=== PATIENT | male | born 1950 | race Caucasian/White ===

== ENCOUNTER 2017-04-25 17:34 | Emergency (ER) | payer SELFPAY ==
[~2017-04-25] VITALS: Ht 193 cm; Wt 120.2 kg
[~2017-04-25 17:34] MED LIST: DIAZ-60 PO; [UNRECOGNIZED DRUG - CODE] PO
--- NOTE | 2017-04-25 17:34 | NUR ---
BROUGHT IN BY SOTERO FITCH, PLACED IN HALLWAY AND TRIAGED. REPORT GIVEN TO MERON
[2017-04-25 17:35] VITALS: BP_SYST 140
--- NOTE | 2017-04-25 17:40 | NUR ---
YUMIKO Wong at bedside examining patient.
--- NOTE | 2017-04-25 17:44 | NUR ---
Pt ALEN Hoffman. Per , pt is being arrested, but has not taken his Parkinson's medication. Will need medical evaluation before booking. Pt sitting comfortably in chair, speaking in full sentences, breathing even and unlabored. No other injuries/complaints per pt/noted.
[2017-04-25] MEDS ORDERED: CARBIDOPA/LEVODOPA 25/100 MG TABLET PO ONE (17:45)
[2017-04-25 18:33] VITALS: BP_SYST 135
--- NOTE | 2017-04-25 18:33 | NUR ---
Patient given written and verbal discharge instructions and verbalizes understanding. ER MD discussed with patient the results and treatment provided. Patient in stable condition. ID arm band removed. Rx of carbidopa/levodopa given. Patient educated on pain management and to follow up with PMD. Pain Scale 0. Opportunity for questions provided and answered.
== END 2017-04-25 18:33 ==
LOC: SED 17:34
DX: Z02.89 Encounter for other administrative examinations (principal); G20 Parkinson's disease
CPT/HCPCS: 99283

== ENCOUNTER 2020-01-18 14:16 | Emergency (ER) | payer MEDICARE ==
[~2020-01-18] VITALS: Ht 188 cm; Wt 136.1 kg
[2020-01-18 14:16] VITALS: BP_SYST 157
[~2020-01-18 14:16] MED LIST changes: -DIAZ-60 PO; +DIAZ5TAB PO
--- NOTE | 2020-01-18 14:16 | NUR ---
PLACED IN BED 2, TRIAGED AT BEDSIDE, 12 LEAD EKG IN PROGRESS
--- NOTE | 2020-01-18 14:20 | NUR ---
EKG performed at BS by RN. Physician given copy of EKG for review.
--- NOTE | 2020-01-18 14:20 | NUR ---
Pt walked in to ER with c/o chest tightness and anxiety since this morning. Reports recent h/o anxiety attacks and taking prescribed medications but they aren't working. V/S stable, pt is afebrile. Currently resting in bed, will continue to monitor
--- NOTE | 2020-01-18 14:25 | NUR ---
YUMIKO Wong at bedside examining patient.
[2020-01-18] MEDS ORDERED: ASPIRIN 325 MG TABLET (ECOTRIN) PO ONE (14:45)
--- NOTE | 2020-01-18 14:45 | NUR ---
# 18 gauge angiocath placed to right wrist. Use of asceptic technique. Opsite placed over site. Blood return noted. Blood for lab drawn from site. Flushed with 10 cc of normal saline. No evidence of infiltration noted. Patient tolerated well.
--- NOTE | 2020-01-18 14:50 | NUR ---
Radiology at bedside for CXR, pt refusing at this time. Dr. Wong aware
[2020-01-18] MEDS ORDERED: ALPRAZolam 0.25 MG TABLET PO ONE (15:00)
[2020-01-18 15:23] LABS: BASOPHILS # (AUTO) 0.1 K/uL (0.0-0.2); BASOPHILS % (AUTO) 0.7 % (0.0-2.0); EOSINOPHILS # (AUTO) 0.5 K/uL (0.0-0.4); EOSINOPHILS % (AUTO) 6.5 % (0.0-4.0); HEMATOCRIT 38.5 % (36-54); HEMOGLOBIN 12.6 g/dL (14.0-18.0); LYMPHOCYTES # (AUTO) 3.1 K/uL (1.0-5.5); LYMPHOCYTES % (AUTO) 36.4 % (20.5-51.5); MEAN CORPUSCULAR HEMOGLOBIN 31 pg (27-31); MEAN CORPUSCULAR HGB CONC 33 % (32-36); MEAN CORPUSCULAR VOLUME 95 fL (79.0-98.0); MONOCYTES # (AUTO) 0.7 K/uL (0.0-1.0); MONOCYTES % (AUTO) 8.6 % (1.7-9.3); NEUTROPHILS % (AUTO) 47.8 % (40.0-70.0); PLATELET COUNT (AUTO) 201 K/uL (130-430); RED BLOOD CELL COUNT(AUTO) 4.07 MIL/uL (4.2-6.2); RED CELL DISTRIBUTION WIDTH 12.7 % (9.0-15.0); WHITE BLOOD COUNT (AUTO) 8.4 K/uL (4.8-10.8)
[2020-01-18 15:27] LABS: ANION GAP 3 (5-15); CALCIUM 8.7 mg/dL (8.4-11.0); CHLORIDE 105 mmol/L (98-107); CREATININE 1.07 mg/dL (0.55-1.30); GLUCOSE 96 mg/dL (70-99); SODIUM SERUM 142 mmol/L (136-145); UREA NITROGEN, BLOOD 21 mg/dL (8-21)
[2020-01-18 15:40] LABS: ALANINE AMINOTRANSFERASE 15 U/L (12-78); ALBUMIN 3.5 g/dL (3.4-4.8); ASPARTATE AMINOTRANSFERASE 14 U/L (10-37); TOTAL BILIRUBIN 1.3 mg/dL (0.0-1.0)
[2020-01-18 15:42] LABS: GFR AFRICAN AMERICAN 89 mL/min (>90)
[2020-01-18 16:06] VITALS: BP_SYST 135
--- NOTE | 2020-01-18 16:07 | NUR ---
Patient given written and verbal discharge instructions and verbalizes understanding. ER MD discussed with patient the results and treatment provided. Patient in stable condition. ID arm band removed. IV catheter removed intact and dressing applied, no active bleeding. Rx of NONE given. Patient educated on pain management and to follow up with PMD. Pain Scale 0/10 Opportunity for questions provided and answered. Medication side effect fact sheet provided.
== END 2020-01-18 16:06 | disposition home or self-care (01) ==
LOC: SED 14:16
DX: F41.0 Panic disorder [episodic paroxysmal anxiety] (principal); R07.89 Other chest pain; G20 Parkinson's disease
CPT/HCPCS: 36415; 80053; 83880; 84484; 85025; 93005; 99284

== ENCOUNTER 2020-07-23 10:43 | Emergency (ER) | payer MEDICARE ==
[~2020-07-23] VITALS: Ht 185.4 cm; Wt 122.5 kg
[2020-07-23 10:53] VITALS: BP_SYST 162
[2020-07-23] MEDS ORDERED: ONDANSETRON HCL 4 MG/2 ML VIAL IVP ONE ×2 (11:00→12:30)
[2020-07-23] MEDS ORDERED: MECLIZINE HCL 25 MG TABLET (ANITVERT) PO ONE (11:00)
[2020-07-23 11:09] LABS: BASOPHILS # (AUTO) 0.1 K/uL (0.0-0.2); BASOPHILS % (AUTO) 1.1 % (0.0-2.0); EOSINOPHILS # (AUTO) 1.1 K/uL (0.0-0.4); EOSINOPHILS % (AUTO) 17.8 % (0.0-4.0); HEMATOCRIT 41.3 % (36-54); HEMOGLOBIN 13.5 g/dL (14.0-18.0); LYMPHOCYTES # (AUTO) 2.5 K/uL (1.0-5.5); MEAN CORPUSCULAR HEMOGLOBIN 31 pg (27-31); MEAN CORPUSCULAR HGB CONC 33 % (32-36); MEAN CORPUSCULAR VOLUME 96 fL (79.0-98.0); MONOCYTES # (AUTO) 0.6 K/uL (0.0-1.0); MONOCYTES % (AUTO) 8.6 % (1.7-9.3); NEUTROPHILS # (AUTO) 2.2 K/uL (1.8-7.7); NEUTROPHILS % (AUTO) 34.5 % (40.0-70.0); PLATELET COUNT (AUTO) 218 K/uL (130-430); RED BLOOD CELL COUNT(AUTO) 4.31 MIL/uL (4.2-6.2); RED CELL DISTRIBUTION WIDTH 13.6 % (9.0-15.0); WHITE BLOOD COUNT (AUTO) 6.5 K/uL (4.8-10.8)
[2020-07-23 11:27] LABS: ANION GAP 6 (5-15); CHLORIDE 104 mmol/L (98-107); CREATININE 0.92 mg/dL (0.55-1.30); GLUCOSE 101 mg/dL (70-99); POTASSIUM 4.9 mmol/L (3.5-5.1); SODIUM SERUM 142 mmol/L (136-145); UREA NITROGEN, BLOOD 15 mg/dL (8-21)
[2020-07-23 11:28] LABS: GFR AFRICAN AMERICAN 106 mL/min (>90)
[2020-07-23 11:32] LABS: ALANINE AMINOTRANSFERASE 16 U/L (12-78); ALBUMIN 3.6 g/dL (3.4-4.8); ASPARTATE AMINOTRANSFERASE 20 U/L (10-37); TOTAL BILIRUBIN 0.5 mg/dL (0.0-1.0)
[2020-07-23 11:33] LABS: ALCOHOL, BLOOD < 3 mg/dL (<10)
[2020-07-23 11:34] LABS: INR 0.9 (0.80-1.20); PROTHROMBIN TIME 9.6 SECS (9.5-12.5)
[2020-07-23] MEDS ORDERED: MORPHINE 2 MG/ML INJ. SYRINGE IVP ONE (12:30)
[2020-07-23 12:32] LABS: BILIRUBIN,URINE NEGATIVE (NEGATIVE); BLOOD, URINE NEGATIVE (NEGATIVE); CLARITY/URINE CLEAR (CLEAR); COLOR,URINE YELLOW (YELLOW); GLUCOSE,URINE NEGATIVE (NEGATIVE); KETONES,URINE NEGATIVE (NEGATIVE); LEUKOCYTE ESTERASE ,URINE NEGATIVE (NEGATIVE); NITRITE, URINE NEGATIVE (NEGATIVE); PH,URINE 5.5 (5.0-8.0); PROTEIN URINE NEGATIVE (NEGATIVE); UROBILINOGEN,URINE 0.2 (0.2-1.0)
[2020-07-23 12:39] LABS: BARBITURATE, URINE NEGATIVE (NEG <=200); BENZODIAZEPINE, URINE NEGATIVE (NEG <=150); CANNABINOID, URINE NEGATIVE (NEG <=50); COCAINE, URINE NEGATIVE (NEG <=150); OPIATE, URINE POSITIVE (NEG <=100); PHENCYCLIDINE SCREEN,URINE NEGATIVE (NEG <=25); UR TRICYCLIC ANTIDEPRESSANTS NEGATIVE (NEG <=300); URINE AMPHETAMINE NEGATIVE (NEG <=500); URINE METHADONE NEGATIVE (NEG <=200); URINE OXYCODONE SCREEN NEGATIVE (NEG <=100); URINE PROPOXYPHENE SCREEN NEGATIVE (NEG <=300)
[2020-07-23 12:41] LABS: METHAMPHETAMINES SCREEN,URINE NEGATIVE (NEG <=500)
[2020-07-23 13:30] VITALS: BP_SYST 162
== END 2020-07-23 13:20 | disposition left against medical advice (07) ==
LOC: SED 10:43
DX: R42 Dizziness and giddiness (principal); F41.9 Anxiety disorder, unspecified; G20 Parkinson's disease
CPT/HCPCS: 36415; 70450; 71045; 76376; 80053; 80307; 81003; 84484; 85025; 85610; 85730; 93005; 96374; 96375; 99285; G0482; J2270; J2405; J8597

== ENCOUNTER 2020-08-03 20:10 | Emergency (ER) | payer MEDICARE ==
[~2020-08-03] VITALS: Ht 193 cm; Wt 136.1 kg
[2020-08-03 20:10] VITALS: BP_SYST 151
--- NOTE | 2020-08-03 20:15 | NUR ---
Patient ambulatory to bed 2 for evaluation
--- NOTE | 2020-08-03 20:35 | NUR ---
ER at bedside examining patient.
--- NOTE | 2020-08-03 20:40 | NUR ---
CALM, ALERT, RESP UNLABORED, STEADY GAIT, NO DYSPNEA. SKIN WARM AND DRY.
--- NOTE | 2020-08-03 21:12 | NUR ---
C/O INCREASED ANXIETY, REQUESTING "PILL TO RELAX" ,NO DISTRESS, RESP UNLABORED
[2020-08-03] MEDS ORDERED: ALPRAZolam 0.25 MG TABLET PO ONE (21:30)
--- NOTE | 2020-08-03 22:03 | NUR ---
LABS EKG COMPLETED
--- NOTE | 2020-08-03 22:05 | NUR ---
CXR IN PROGRESS PT TOLERATING WELL
--- NOTE | 2020-08-03 22:13 | NUR ---
STATED FEELING BETTER AND MORE RELAXED
[2020-08-03 22:22] LABS: BASOPHILS # (AUTO) 0.1 K/uL (0.0-0.2); BASOPHILS % (AUTO) 1.4 % (0.0-2.0); EOSINOPHILS # (AUTO) 0.7 K/uL (0.0-0.4); EOSINOPHILS % (AUTO) 10.4 % (0.0-4.0); HEMATOCRIT 39.5 % (36-54); LYMPHOCYTES % (AUTO) 30.6 % (20.5-51.5); MEAN CORPUSCULAR HEMOGLOBIN 31 pg (27-31); MEAN CORPUSCULAR HGB CONC 33 % (32-36); MEAN CORPUSCULAR VOLUME 95 fL (79.0-98.0); MONOCYTES # (AUTO) 0.6 K/uL (0.0-1.0); MONOCYTES % (AUTO) 8.4 % (1.7-9.3); NEUTROPHILS # (AUTO) 3.3 K/uL (1.8-7.7); NEUTROPHILS % (AUTO) 49.2 % (40.0-70.0); PLATELET COUNT (AUTO) 222 K/uL (130-430); RED BLOOD CELL COUNT(AUTO) 4.14 MIL/uL (4.2-6.2); RED CELL DISTRIBUTION WIDTH 13.9 % (9.0-15.0); WHITE BLOOD COUNT (AUTO) 6.7 K/uL (4.8-10.8)
[2020-08-03 22:29] LABS: CALCIUM 8.7 mg/dL (8.4-11.0); CREATININE 1.06 mg/dL (0.55-1.30); POTASSIUM 4.7 mmol/L (3.5-5.1)
[2020-08-03 22:32] LABS: PROTHROMBIN TIME 10.3 SECS (9.5-12.5)
[2020-08-03 22:35] LABS: ALBUMIN 3.4 g/dL (3.4-4.8); TOTAL BILIRUBIN 0.5 mg/dL (0.0-1.0)
[2020-08-03] MEDS ORDERED: ALPR0.5T PO (22:56)
--- NOTE | 2020-08-03 22:57 | NUR ---
Patient given written and verbal discharge instructions and verbalizes understanding. ER MD discussed with patient the results and treatment provided. Patient in stable condition. ID arm band removed. Patient educated on pain management and to follow up with PMD. Pain Scale 0/10 Opportunity for questions provided and answered. Medication side effect fact sheet provided.
[2020-08-03 23:07] VITALS: BP_SYST 167
== END 2020-08-03 23:07 | disposition home or self-care (01) ==
LOC: SED 20:10
DX: F41.9 Anxiety disorder, unspecified (principal); G20 Parkinson's disease
CPT/HCPCS: 36415; 71045; 80053; 83880; 84484; 85025; 85610-TC; 85730-TC; 93005; 99285

== ENCOUNTER 2020-11-07 23:22 | Emergency (ER) | payer MEDICARE ==
[~2020-11-07] VITALS: Ht 193 cm; Wt 113.4 kg
[~2020-11-07 23:22] MED LIST changes: +ALPR0.5T PO
[2020-11-07 23:41] VITALS: BP_SYST 156
--- NOTE | 2020-11-08 02:20 | NUR ---
Patient to ER bed 5 to gown for evaluation. Side rails up. Report given to CALLY PABLO.
--- NOTE | 2020-11-08 04:01 | NUR ---
Seen and examined by Dr. Lira
--- NOTE | 2020-11-08 04:10 | NUR ---
Pt MALINDA to ED with history of Parkinson's disease and chronic low back pain presents for back pain after foregoing his narcotic medications for a day. Patient takes morphine tablets for his chronic back pain but has recently stopped taking the medication because he developed visual hallucinations, and attributes the symptoms to the morphine. His back pain is no worse than usual. Specifically, no bowel or bladder difficulties
--- NOTE | 2020-11-08 05:15 | NUR ---
VSS no s/s of acute distress Resting on gurney rails up
[2020-11-08 06:00] VITALS: BP_SYST 156
--- NOTE | 2020-11-08 06:00 | NUR ---
Patient given written and verbal discharge instructions and verbalizes understanding. ER MD discussed with patient the results and treatment provided. Patient in stable condition. ID arm band removed. Patient educated on pain management and to follow up with PMD. Pain Scale 0/10 Opportunity for questions provided and answered. [facility] service providing BLS transport for pt to go home
== END 2020-11-08 06:00 | disposition home or self-care (01) ==
LOC: SED 23:22
DX: G89.29 Other chronic pain (principal); M54.5 Low back pain; R44.1 Visual hallucinations; F41.9 Anxiety disorder, unspecified; Z79.899 Other long term (current) drug therapy
CPT/HCPCS: 99283